=== PATIENT | female | born 1945 | race African-American/Black ===

== ENCOUNTER 2018-01-17 18:53 | Observation (INO) | payer BC, MEDICARE ==
[2018-01-17 19:05] LABS: POC GLUCOSE 109 mg/dL (70-99)
[2018-01-17 19:14] LABS: ADD MAN DIFF? NO
[2018-01-17 19:16] LABS: BASO % 1 % (0-3); EOS # 0.1 x10^3/uL (0.0-0.7); EOS % 2 % (0-3); HEMATOCRIT 38.3 % (36.0-47.0); HEMOGLOBIN 12.6 g/dL (12.0-15.5); LYMPH # 2.6 x10^3/uL (1.0-4.8); LYMPH % 38 % (24-48); MEAN CORPUSCULAR HEMOGLOBIN 28 pg (25-35); MEAN CORPUSCULAR HGB CONC 33 g/dL (31-37); MEAN CORPUSCULAR VOLUME 85 fL (79-100); MONO # 0.7 x10^3/uL (0.0-1.1); MONO % 11 % (0-9); NEUT # 3.4 x10^3uL (1.8-7.7); NEUT % 49 % (31-73); PLATELET COUNT 312 x10^3/uL (140-400); RED CELL DISTRIBUTION WIDTH 14.6 % (11.5-14.5); WHITE BLOOD COUNT 6.8 x10^3/uL (4.0-11.0)
[2018-01-17 19:25] LABS: ANION GAP 7 (6-14); BLOOD UREA NITROGEN 18 mg/dL (7-20); CALCIUM 8.3 mg/dL (8.5-10.1); CARBON DIOXIDE 26 mmol/L (21-32); CHLORIDE 107 mmol/L (98-107); CREATININE 0.9 mg/dL (0.6-1.0); GFR 74.1; GLUCOSE 96 mg/dL (70-99); POTASSIUM 3.6 mmol/L (3.5-5.1); SODIUM 140 mmol/L (136-145)
[2018-01-17 19:31] LABS: ETHANOL < 10 mg/dL (0-10)
[2018-01-17 19:34] LABS: TROPONINI < 0.017 ng/mL (0.000-0.055)
[2018-01-17 19:38] LABS: NT-PRO BNP 85 pg/mL (0-124)
[2018-01-17] MEDS: IV NORMAL SALINE 500ML BAG 500 ML IV (20:15)
[2018-01-17] MEDS ORDERED: ONDANSETRON PF 4 MG/2 ML VIAL. IV (21:30)
[2018-01-17 21:53] LABS: BILIRUBIN,URINE NEGATIVE (NEG); CLARITY,URINE CLEAR; COLOR,URINE YELLOW; GLUCOSE,URINE NEGATIVE (NEG); NITRITE,URINE NEGATIVE (NEG); PH,URINE 6.5; PROTEIN,URINE NEGATIVE (NEG-TRACE)
[2018-01-17 22:01] LABS: BACTERIA,URINE 0 /HPF (0-FEW); HYALINE CASTS, URINE FEW /HPF; RBC,URINE 0 /HPF (0-2); SQUAMOUS EPITHELIAL CELL,UR FEW /LPF; WBC,URINE 0 /HPF (0-4)
[2018-01-17] MEDS: IV NORMAL SALINE 1000ML BAG 1,000 ML IV (23:47)
[2018-01-18 01:29] LABS: TROPONINI < 0.017 ng/mL (0.000-0.055)
[2018-01-18 04:37] LABS: ADD MAN DIFF? NO
[2018-01-18 04:46] LABS: BASO # 0.1 x10^3/uL (0.0-0.2); BASO % 1 % (0-3); EOS # 0.1 x10^3/uL (0.0-0.7); EOS % 1 % (0-3); HEMATOCRIT 38.2 % (36.0-47.0); HEMOGLOBIN 12.6 g/dL (12.0-15.5); LYMPH # 3.1 x10^3/uL (1.0-4.8); LYMPH % 34 % (24-48); MEAN CORPUSCULAR HEMOGLOBIN 28 pg (25-35); MEAN CORPUSCULAR HGB CONC 33 g/dL (31-37); MEAN CORPUSCULAR VOLUME 86 fL (79-100); MONO # 0.7 x10^3/uL (0.0-1.1); MONO % 8 % (0-9); NEUT # 5.1 x10^3uL (1.8-7.7); NEUT % 56 % (31-73); PLATELET COUNT 307 x10^3/uL (140-400); RED BLOOD COUNT 4.45 x10^6/uL (3.50-5.40); RED CELL DISTRIBUTION WIDTH 14.6 % (11.5-14.5); WHITE BLOOD COUNT 9.1 x10^3/uL (4.0-11.0)
[2018-01-18 05:32] LABS: ANION GAP 6 (6-14); BLOOD UREA NITROGEN 14 mg/dL (7-20); CALCIUM 8.4 mg/dL (8.5-10.1); CARBON DIOXIDE 27 mmol/L (21-32); CHLORIDE 110 mmol/L (98-107); CREATININE 0.7 mg/dL (0.6-1.0); GLUCOSE 82 mg/dL (70-99); POTASSIUM 3.9 mmol/L (3.5-5.1); SODIUM 143 mmol/L (136-145)
[2018-01-18 05:56] LABS: TROPONINI < 0.017 ng/mL (0.000-0.055)
[2018-01-18] MEDS: IV NORMAL SALINE 1000ML BAG 1,000 ML IV (12:07)
[2018-01-18] MEDS: ASPIRIN ENTERIC COATED 81 MG TABLET.DR. PO (16:21)
[2018-01-18] MEDS: CHOLECALCIFEROL (VITAMIN D3) 1,000 UNIT TABLET PO (16:23)
[2018-01-18] MEDS: SIMVASTATIN 40 MG TABLET. PO (20:06)
[2018-01-19] MEDS: ASPIRIN ENTERIC COATED 81 MG TABLET.DR. PO (09:04)
[2018-01-19] MEDS: CHOLECALCIFEROL (VITAMIN D3) 1,000 UNIT TABLET PO (09:04)
== END 2018-01-19 13:30 | disposition home or self-care (01) ==
LOC: ER 18:53 → 5 SOUTH 20:30
PROVIDERS: Hospitalist
DX: R55 Syncope and collapse (principal); I10 Essential (primary) hypertension; R32 Unspecified urinary incontinence; Z86.73 Personal history of transient ischemic attack (TIA), and cerebral infarction without residual deficits; Z90.710 Acquired absence of both cervix and uterus
CPT/HCPCS: 36415; 70450; 80048; 81001; 82962; 83880; 84484; 85025; 93005; 93306; 96360; 96361; 97161-GP; 99285-25; G0378; G0379; G0480; G8978-CH-GP; G8979-CH-GP; G8980-CH-GP; J7030; J7040

== ENCOUNTER → 2018-12-28 | Outpatient (CLI) | payer BC ==
[2018-01-19 11:00] VITALS: BP 137/67
[~2018-12-28] MED LIST: AMLO10TA8 PO; ASPI-171 PO; CHOL10003 PO; LISI10TA2 PO; SIMV40TA3 PO
--- NOTE | 2018-12-28 18:23 | KCIC ---
MRI of the brain without contrast 12/28/2018 Clinical History: Memory loss. Technique: Unenhanced T1-weighted sagittal and axial, T2-weighted axial and coronal and FLAIR, gradient echo and diffusion-weighted axial images of the brain were obtained. Findings: Comparison study is dated 11/01/2013. There is generalized parenchymal atrophy. Patchy, confluent and multiple focal areas of increased signal intensity are seen within the periventricular and subcortical white matter of both cerebral hemispheres along with the dari on the FLAIR and T2-weighted images consistent with areas of extensive small vessel ischemic disease. These have not significantly changed. Old areas of infarction are seen involving the right cerebellar hemisphere. These measure 2 mm to 2 cm in size. Old areas of infarction are seen involving the left and right thalamus and the left basal ganglia region. No acute parenchymal abnormality is seen. No extra-axial fluid collection is seen. There is no MRI evidence of acute ischemia/infarction. Mild mucosal thickening is seen scattered throughout the paranasal sinuses. A minimal bilateral mastoid effusions. Normal flow voids are seen within the major vascular structures surrounding the brain parenchyma. Impression: No acute parenchymal abnormality is seen. Electronically signed by: Albert Mckeon MD (12/28/2018 6:21 PM) [facility]-[email or web address]
== END | disposition home or self-care (01) ==
LOC: KCIC MRI 14:26
PROVIDERS: ATTEND Internal Medicine
DX: G31.89 Other specified degenerative diseases of nervous system (principal); H74.8X3 Other specified disorders of middle ear and mastoid, bilateral; J34.89 Other specified disorders of nose and nasal sinuses
CPT/HCPCS: 70551

== ENCOUNTER 2019-09-24 15:38 | Observation (INO) | payer BC ==
[~2019-09-24] VITALS: Ht 160 cm; Wt 63.0 kg
[~2019-09-24 15:38] MED LIST changes: +SIMV40TA18 PO; -SIMV40TA3 PO
[2019-09-24] MEDS ORDERED: 0.9 % SODIUM CHLORIDE 10 ML DISP.SYRIN. IV PRN (15:45)
--- NOTE | 2019-09-24 15:52 | PHYS DOC ---
Past Medical History Past Medical History: CVA, DVT, Hypertension, TIA Past Surgical History: Cholecystectomy, Hysterectomy Smoking Status: Current Every Day Smoker Alcohol Use: Rarely Drug Use: Marijuana Adult General HPI HPI Patient is a 74 year old female who presents with evaluation of headache and elevated blood pressure. EMS was called to the patient's home and she was having a moderate headache and initial blood pressure was 200/100s. Patient has a known history of hypertension but has some underlying dementia and may not be compliant with medications. Patient currently lives at home with her son. He is in route so we can discuss the case further. Patient has history of recent TIA or CVA in the past 1 to 2 months. Blood pressure improved to 176/80s in the ambulance. Patient is pleasant, awake and alert. There is no focal deficits or lateralizing signs. Patient complaining of mild to early moderate headache worse on left side. No chest pain, no shortness of air, no nausea and vomiting. No syncope reported from report given from EMS Review of Systems Review of Systems Constitutional: Denies fever or chills [] Eyes: Denies change in visual acuity, redness, or eye pain [] HENT: Denies nasal congestion or sore throat [] Respiratory: Denies cough or shortness of breath [] Cardiovascular: No additional information not addressed in HPI [] GI: Denies abdominal pain, nausea, vomiting, bloody stools or diarrhea [] : Denies dysuria or hematuria [] Musculoskeletal: Denies back pain or joint pain [] Integument: Denies rash or skin lesions [] Neurologic: c/o headache, no focal weakness or sensory changes [] Endocrine: Denies polyuria or polydipsia [] All other systems were reviewed and found to be within normal limits, except as documented in this note. Current Medications Current Medications Current Medications Medications (Trade) Dose Ordered Sig/Luis Angel Start Time Stop Time Status Last Admin Dose Admin Sodium Chloride (Normal Saline Flush) 10 ml QSHIFT PRN 09/24/19 15:45 Allergies Allergies Allergies Coded Allergies Type Severity Reaction Last Updated Verified Penicillins Allergy Intermediate 11/01/13 Yes codeine Allergy Intermediate 11/01/13 Yes Physical Exam Physical Exam Constitutional: Well developed, well nourished, mild distress. [] HENT: Normocephalic, atraumatic, bilateral external ears normal, oropharynx moist, no oral exudates, nose normal. [] Eyes: PERRL, EOMI, conjunctiva normal, no discharge. [] Neck: Normal range of motion, no tenderness, supple, no stridor. [] Cardiovascular:Heart rate regular rhythm, no murmur [] Lungs & Thorax: Bilateral breath sounds clear to auscultation [] Abdomen: Bowel sounds normal, soft, no tenderness, no masses, no pulsatile masses. [] Skin: Warm, dry, no erythema, no rash. [] Back: No tenderness, no CVA tenderness. [] Extremities: No tenderness, no cyanosis, no clubbing, ROM intact, no edema. [] Neurologic: Alert and oriented to person, normal motor function, normal sensory function, no focal deficits noted. [] Psychologic: abnormal judgement, flatted affect, mood normal. [] Current Patient Data Vital Signs Vital Signs Date Time Temp Pulse Resp B/P (MAP) Pulse Ox O2 Delivery O2 Flow Rate FiO2 09/24/19 15:38 98.9 60 16 160/80 (106) 91 Room Air 98.9 Lab Values Laboratory Tests Test 09/24/19 16:25 White Blood Count 5.6 x10^3/uL (4.0-11.0) Red Blood Count 4.68 x10^6/uL (3.50-5.40) Hemoglobin 13.4 g/dL (12.0-15.5) Hematocrit 40.1 % (36.0-47.0) Mean Corpuscular Volume 86 fL (79-100) Mean Corpuscular Hemoglobin 29 pg (25-35) Mean Corpuscular Hemoglobin Concent 34 g/dL (31-37) Red Cell Distribution Width 15.2 % (11.5-14.5) H Platelet Count 311 x10^3/uL (140-400) Neutrophils (%) (Auto) 60 % (31-73) Lymphocytes (%) (Auto) 26 % (24-48) Monocytes (%) (Auto) 12 % (0-9) H Eosinophils (%) (Auto) 2 % (0-3) Basophils (%) (Auto) 1 % (0-3) Neutrophils # (Auto) 3.4 x10^3/uL (1.8-7.7) Lymphocytes # (Auto) 1.4 x10^3/uL (1.0-4.8) Monocytes # (Auto) 0.7 x10^3/uL (0.0-1.1) Eosinophils # (Auto) 0.1 x10^3/uL (0.0-0.7) Basophils # (Auto) 0.0 x10^3/uL (0.0-0.2) Sodium Level 143 mmol/L (136-145) Potassium Level 3.8 mmol/L (3.5-5.1) Chloride Level 108 mmol/L (98-107) H Carbon Dioxide Level 26 mmol/L (21-32) Anion Gap 9 (6-14) Blood Urea Nitrogen 15 mg/dL (7-20) Creatinine 1.1 mg/dL (0.6-1.0) H Estimated GFR (Cockcroft-Gault) 58.4 BUN/Creatinine Ratio 14 (6-20) Glucose Level 91 mg/dL (70-99) Calcium Level 8.9 mg/dL (8.5-10.1) Total Bilirubin 0.4 mg/dL (0.2-1.0) Aspartate Amino Transferase (AST) 17 U/L (15-37) Alanine Aminotransferase (ALT) 13 U/L (14-59) L Alkaline Phosphatase 86 U/L (46-116) Troponin I Quantitative < 0.017 ng/mL (0.000-0.055) Total Protein 7.4 g/dL (6.4-8.2) Albumin 2.8 g/dL (3.4-5.0) L Albumin/Globulin Ratio 0.6 (1.0-1.7) L Laboratory Tests 09/24/19 16:25 Laboratory Tests 09/24/19 16:25 EKG EKG [] Interpretation Time: Normal sinus rhythm, rate 62, essentially unremarkable EKG, read shortly after patient's arrival Radiology/Procedures Radiology/Procedures PATIENT: LUL BAEZ RACCOUNT: [id number] : 1945 LOCATION: ER AGE: 74 SEX: F EXAM STATUS: REG ER ORD. PHYSICIAN: JEFF SEAMAN DO REASON: short of air PROCEDURE: CHEST AP ONLY CHEST AP ONLY Clinical Indication: Shortness of air Comparison: AP chest October 31, 2013. Findings: Atherosclerotic and tortuous thoracic aorta. The cardiac size is normal. Linear opacities in the left lung base may be atelectasis or scarring. Tiny calcified granulomas are noted bilaterally. There is no pneumothorax. No pleural effusion is appreciated. No acute bone abnormality. IMPRESSION: Mild linear opacities in the left lung base may be atelectasis or scarring. Electronically signed by: Pollo Correa MD (09/24/2019 4:10 PM) [id number] DICTATED and SIGNED BY: POLLO CORREA MD DATE: 09/24/190 PATIENT: LUL BAEZ RACCOUNT: [id number] : 1945 LOCATION: ER AGE: 74 SEX: F EXAM STATUS: REG ER ORD. PHYSICIAN: JEFF SEAMAN DO REASON: headache, HTN crisis, hx TIA/CVA PROCEDURE: CT HEAD WO CONTRAST CT HEAD WO CONTRAST Indication: Headache, hypertensive crisis. Exposure: One or more of the following individualized dose reduction techniques were utilized for this examination: 1. Automated exposure control 2. Adjustment of the mA and/or kV according to patient size 3. Use of iterative reconstruction technique. Technique: Standard imaging without intravenous contrast. Comparison: 01/17/2018. FINDINGS: No evidence of acute intracranial hemorrhage, mass effect, midline shift or abnormal extra-axial fluid collection. Low-density in the white matter bilaterally, a nonspecific finding, but which is commonly due to chronic small vessel ischemic disease in a patient of this age. More focal low-density focus within the left basal ganglia/internal capsule is again identified, likely chronic appearing infarct. There is another well-defined low-attenuation focus within the right basal ganglia/internal capsule, not seen previously. This is also compatible with small lacunar infarction, probably not acute but new since that exam. Another low-density region in the left periventricular white matter is stable, probably another lunar consider infarct versus cyst. Generalized atrophy. The partially visualized orbits are unremarkable. No evidence of significant scalp swelling. The visualized sinuses are clear. No evidence of acute skull abnormality. IMPRESSION: 1. No evidence of acute intracranial hemorrhage. 2. Small areas of white matter hypodensity likely due to old lacunar infarcts and chronic small vessel ischemic disease. One of these on the right is new since the previous exam, but still has a chronic appearance. Note that CT can be insensitive for detection of acute infarction, and recommend MR brain if that is of concern clinically. Electronically signed by: Eagle Kearney MD (09/24/2019 4:13 PM) [id number] DICTATED and SIGNED BY: EAGLE KEARNEY MD DATE: 09/24/19 1613 Course & Med Decision Making Course & Med Decision Making Pertinent Labs and Imaging studies reviewed. (See chart for details) 1700 patient accepted for admission by Dr. Valenzuela. Patient admitted to a telemetry bed for overnight observation. Differential diagnosis included CVA, uncontrolled hypertension, brain bleed, hypoglycemia, electrolyte disturbance, cardiac issue. Patient is lucid, awake and appropriate at this time. NIH stroke scale is 1 because patient did not know the month. However she has underlying dementia and that may be her baseline status. Patient has no obvious new focal deficits or lateralizing signs. Patient did not require IV medication or drip to control her hypertension Dragon Disclaimer Dragon Disclaimer This electronic medical record was generated, in whole or in part, using a voice recognition dictation system. Departure Departure Impression: Primary Impression: Hypertensive urgency Additional Impression: Cerebral infarction Disposition: ADMITTED INPATIENT Admitting Physician: SRI (Dr. Valenzuela) Condition: STABLE Referrals: NEAL DUDLEY MD (PCP) NIHSS Stroke Scale NIH Stroke Scale: NIH Stroke Scale Response (Comments) Value Level of Consciousness: 0 Alert/Responsive 0 LOC Questions: 1 Answers one correctly 1 LOC Commands: 0 Performs both tasks 0 Best Gaze: 0 Normal 0 Facial Palsy: 0 Normal, symmetrical 0 Motor - Left Arm 0 No drift 0 Motor - Right Arm 0 No drift 0 Motor - Left Leg 0 No drift 0 Motor: Right Leg 0 No drift 0 Limb Ataxia: 0 Absent 0 Sensory: 0 No loss 0 Best Language: 0 Normal 0 Dysathria: 0 Normal 0 Extinction and Inattention: 0 Normal 0 Total 1 Problem Qualifiers JEFF SEAMAN DO Sep 24, 2019 15:52
--- NOTE | 2019-09-24 16:13 | RAD ---
CHEST AP ONLY Clinical Indication: Shortness of air Comparison: AP chest October 31, 2013. Findings: Atherosclerotic and tortuous thoracic aorta. The cardiac size is normal. Linear opacities in the left lung base may be atelectasis or scarring. Tiny calcified granulomas are noted bilaterally. There is no pneumothorax. No pleural effusion is appreciated. No acute bone abnormality. IMPRESSION: Mild linear opacities in the left lung base may be atelectasis or scarring. Electronically signed by: Pollo Correa MD (09/24/2019 4:10 PM) [id number]
--- NOTE | 2019-09-24 16:16 | RAD ---
CT HEAD WO CONTRAST Indication: Headache, hypertensive crisis. Exposure: One or more of the following individualized dose reduction techniques were utilized for this examination: 1. Automated exposure control 2. Adjustment of the mA and/or kV according to patient size 3. Use of iterative reconstruction technique. Technique: Standard imaging without intravenous contrast. Comparison: 01/17/2018. FINDINGS: No evidence of acute intracranial hemorrhage, mass effect, midline shift or abnormal extra-axial fluid collection. Low-density in the white matter bilaterally, a nonspecific finding, but which is commonly due to chronic small vessel ischemic disease in a patient of this age. More focal low-density focus within the left basal ganglia/internal capsule is again identified, likely chronic appearing infarct. There is another well-defined low-attenuation focus within the right basal ganglia/internal capsule, not seen previously. This is also compatible with small lacunar infarction, probably not acute but new since that exam. Another low-density region in the left periventricular white matter is stable, probably another lunar consider infarct versus cyst. Generalized atrophy. The partially visualized orbits are unremarkable. No evidence of significant scalp swelling. The visualized sinuses are clear. No evidence of acute skull abnormality. IMPRESSION: 1. No evidence of acute intracranial hemorrhage. 2. Small areas of white matter hypodensity likely due to old lacunar infarcts and chronic small vessel ischemic disease. One of these on the right is new since the previous exam, but still has a chronic appearance. Note that CT can be insensitive for detection of acute infarction, and recommend MR brain if that is of concern clinically. Electronically signed by: Eagle Kearney MD (09/24/2019 4:13 PM) [id number]
--- NOTE | 2019-09-24 16:18 | EKG ---
[facility] [address] [place] [address] Test Date: 2019-09-24 Test Time: 15:48:13 Pat Name: LUL BAEZ Department: Room: Gender: F Helper Electrical: : 1945 Requested By: JEFF SEAMAN Order Number: [id number] Reading MD: Measurements Intervals [place] Rate: 62 P: 42 LA: 152 QRS: 4 QRSD: 66 T: 38 QT: 366 QTc: 373 Interpretive Statements SINUS RHYTHM NORMAL ECG No previous ECG available for comparison
[2019-09-24 16:36] LABS: BASO % 1 % (0-3); EOS # 0.1 x10^3/uL (0.0-0.7); EOS % 2 % (0-3); HEMATOCRIT 40.1 % (36.0-47.0); HEMOGLOBIN 13.4 g/dL (12.0-15.5); LYMPH # 1.4 x10^3/uL (1.0-4.8); LYMPH % 26 % (24-48); MEAN CORPUSCULAR HEMOGLOBIN 29 pg (25-35); MEAN CORPUSCULAR HGB CONC 34 g/dL (31-37); MEAN CORPUSCULAR VOLUME 86 fL (79-100); MONO # 0.7 x10^3/uL (0.0-1.1); MONO % 12 % (0-9); NEUT # 3.4 x10^3/uL (1.8-7.7); NEUT % 60 % (31-73); PLATELET COUNT 311 x10^3/uL (140-400); RED BLOOD COUNT 4.68 x10^6/uL (3.50-5.40); RED CELL DISTRIBUTION WIDTH 15.2 % (11.5-14.5); WHITE BLOOD COUNT 5.6 x10^3/uL (4.0-11.0)
[2019-09-24 16:44] LABS: CALCIUM 8.9 mg/dL (8.5-10.1); CREATININE 1.1 mg/dL (0.6-1.0); GFR 58.4; POTASSIUM 3.8 mmol/L (3.5-5.1)
[2019-09-24 16:50] LABS: ALBUMIN 2.8 g/dL (3.4-5.0); ALBUMIN/GLOBULIN RATIO 0.6 (1.0-1.7); TOTAL BILIRUBIN 0.4 mg/dL (0.2-1.0); TOTAL PROTEIN 7.4 g/dL (6.4-8.2)
[2019-09-24] MEDS ORDERED: ONDANSETRON PF 4 MG/2 ML VIAL. IV PRN (18:15)
[2019-09-24 19:55] VITALS: BP 156/77
[2019-09-24 23:00] VITALS: BP 150/63
[2019-09-25 03:38] VITALS: BP 150/71
[2019-09-25 07:48] VITALS: BP 144/69
[2019-09-25] MEDS ORDERED: amLODIPine BESYLATE 10 MG TABLET PO SCH (10:00)
[2019-09-25] MEDS ORDERED: ASPIRIN ENTERIC COATED 81 MG TABLET.DR. PO SCH (10:00)
[2019-09-25] MEDS ORDERED: CHOLECALCIFEROL (VITAMIN D3) 1,000 UNIT TABLET PO SCH (10:00)
--- NOTE | 2019-09-25 11:03 | NUR ---
SS following for discharge planning. SS reviewed pt chart. Pt is from home and is currently on room air. SS will continue to follow for discharge planning.
[2019-09-25 11:37] VITALS: BP 146/64
--- NOTE | 2019-09-25 12:45 | PDOC1 ---
History and Physical Date of Admission Date of Admission 09/25/2019 Identification/Chief Complaint Chief Complaint Hypertension History of Present Illness History of Present Illness Patient is a 74-year-old female with past medical history of CVA DVT hypertension who was in her usual state of health until the evening of her admission. Patient has been having some mild headaches over the course of the week. Nevertheless today she presented worsening discomfort EMS was called to discuss today reassured blood pressure readings in the 200s. The patient denies neurological deficits no strokelike symptoms she denies chest pain no palpitations no sensation of impending doom. No disorientation has been reported, the patient is sitting in bed in no acute distress at the time of my visit She denies chest discomfort no acute events reported over 9 her blood pressure seems to be quite better compared to admission we were asked to admit the patient for observation and for blood pressure control. This has been accomplished at the present time and the patient is voicing her wishes to be dismissed home. She is currently a smoker and 10 minutes of counseling took place with the patient and the importance and benefits on her health of quitting smoking. She lives by herself but seems to have family members close by. When asked about her medications and compliance she has a pill organizer and I have encouraged her to follow-up with her primary care physician within 1 week in order to ensure that she has had resolution of her uncontrolled hypertension. Low-salt diet was also discussed during my encounter. We will observe for 1 more hour and probably dismissed patient to early afternoon. Past Medical History Cardiovascular: No pertinent hx Family History Family History Reviewed and found negative noncontributory to the present Current Problem List Problem List Problems Medical Problems: (1) Cerebral infarction Status: Acute (2) Hypertensive urgency Status: Acute Current Medications Current Medications Current Medications Medications (Trade) Dose Ordered Sig/Luis Angel Start Time Stop Time Status Last Admin Dose Admin Amlodipine Besylate (Norvasc) 10 mg DAILY 09/25/19 10:00 09/25/19 09:52 10 MG Aspirin (Ecotrin) 81 mg DAILY 09/25/19 10:00 09/25/19 09:51 81 MG Atorvastatin Calcium (Lipitor) 20 mg QHS 09/25/19 21:00 Ondansetron HCl (Zofran) 4 mg PRN Q8HRS PRN 09/24/19 18:15 09/25/19 18:14 Sodium Chloride (Normal Saline Flush) 10 ml QSHIFT PRN 09/24/19 15:45 Vitamin D (Vitamin D3) 2,000 unit DAILY 09/25/19 10:00 09/25/19 09:51 2,000 UNIT Allergies Allergies Allergies Coded Allergies Type Severity Reaction Last Updated Verified Penicillins Allergy Intermediate 11/01/13 Yes codeine Allergy Intermediate 11/01/13 Yes ROS Review of System CONSTITUTIONAL: No fever or chills EYES: No recent changes SKIN: No rash or itching CARDIOVASCULAR: No chest pain, syncope, palpitations, or edema RESPIRATORY: No SOB or cough GASTROINTESTINAL: No nausea, vomiting or abdominal pain NEUROLOGICAL: No headaches or weakness ENDOCRINE: No cold or heat intolerance GENITOURINARY: No urgency or frequency of urination MUSCULOSKELETAL: No back pain or joint pain LYMPHATICS: No enlarged lymph nodes PSYCHIATRIC: No anxiety or depression Physical Exam Physical Exam GEN.: No apparent distress. Alert and oriented. HEENT: Head is normocephalic, atraumatic NECK: Supple. LUNGS: Clear to auscultation. HEART: RRR, S1, S2 present. Peripheral pulses intact ABDOMEN: Soft, nontender. Positive bowel sounds. EXTREMITIES: Without any cyanosis. NEUROLOGIC: Normal speech, normal tone PSYCHIATRIC: Normal affect, normal mood. SKIN: No ulcerations Vitals Vitals Vital Signs Date Time Temp Pulse Resp B/P (MAP) Pulse Ox O2 Delivery O2 Flow Rate FiO2 09/25/19 11:37 98.6 63 18 146/64 (91) 95 Room Air 98.6 Labs Labs Laboratory Tests Test 09/24/19 16:25 White Blood Count 5.6 x10^3/uL (4.0-11.0) Red Blood Count 4.68 x10^6/uL (3.50-5.40) Hemoglobin 13.4 g/dL (12.0-15.5) Hematocrit 40.1 % (36.0-47.0) Mean Corpuscular Volume 86 fL (79-100) Mean Corpuscular Hemoglobin 29 pg (25-35) Mean Corpuscular Hemoglobin Concent 34 g/dL (31-37) Red Cell Distribution Width 15.2 % (11.5-14.5) Platelet Count 311 x10^3/uL (140-400) Neutrophils (%) (Auto) 60 % (31-73) Lymphocytes (%) (Auto) 26 % (24-48) Monocytes (%) (Auto) 12 % (0-9) Eosinophils (%) (Auto) 2 % (0-3) Basophils (%) (Auto) 1 % (0-3) Neutrophils # (Auto) 3.4 x10^3/uL (1.8-7.7) Lymphocytes # (Auto) 1.4 x10^3/uL (1.0-4.8) Monocytes # (Auto) 0.7 x10^3/uL (0.0-1.1) Eosinophils # (Auto) 0.1 x10^3/uL (0.0-0.7) Basophils # (Auto) 0.0 x10^3/uL (0.0-0.2) Sodium Level 143 mmol/L (136-145) Potassium Level 3.8 mmol/L (3.5-5.1) Chloride Level 108 mmol/L (98-107) Carbon Dioxide Level 26 mmol/L (21-32) Anion Gap 9 (6-14) Blood Urea Nitrogen 15 mg/dL (7-20) Creatinine 1.1 mg/dL (0.6-1.0) Estimated GFR (Cockcroft-Gault) 58.4 BUN/Creatinine Ratio 14 (6-20) Glucose Level 91 mg/dL (70-99) Calcium Level 8.9 mg/dL (8.5-10.1) Total Bilirubin 0.4 mg/dL (0.2-1.0) Aspartate Amino Transf (AST/SGOT) 17 U/L (15-37) Alanine Aminotransferase (ALT/SGPT) 13 U/L (14-59) Alkaline Phosphatase 86 U/L (46-116) Troponin I Quantitative < 0.017 ng/mL (0.000-0.055) Total Protein 7.4 g/dL (6.4-8.2) Albumin 2.8 g/dL (3.4-5.0) Albumin/Globulin Ratio 0.6 (1.0-1.7) Laboratory Tests Test 09/24/19 16:25 White Blood Count 5.6 x10^3/uL (4.0-11.0) Red Blood Count 4.68 x10^6/uL (3.50-5.40) Hemoglobin 13.4 g/dL (12.0-15.5) Hematocrit 40.1 % (36.0-47.0) Mean Corpuscular Volume 86 fL (79-100) Mean Corpuscular Hemoglobin 29 pg (25-35) Mean Corpuscular Hemoglobin Concent 34 g/dL (31-37) Red Cell Distribution Width 15.2 % (11.5-14.5) Platelet Count 311 x10^3/uL (140-400) Neutrophils (%) (Auto) 60 % (31-73) Lymphocytes (%) (Auto) 26 % (24-48) Monocytes (%) (Auto) 12 % (0-9) Eosinophils (%) (Auto) 2 % (0-3) Basophils (%) (Auto) 1 % (0-3) Neutrophils # (Auto) 3.4 x10^3/uL (1.8-7.7) Lymphocytes # (Auto) 1.4 x10^3/uL (1.0-4.8) Monocytes # (Auto) 0.7 x10^3/uL (0.0-1.1) Eosinophils # (Auto) 0.1 x10^3/uL (0.0-0.7) Basophils # (Auto) 0.0 x10^3/uL (0.0-0.2) Sodium Level 143 mmol/L (136-145) Potassium Level 3.8 mmol/L (3.5-5.1) Chloride Level 108 mmol/L (98-107) Carbon Dioxide Level 26 mmol/L (21-32) Anion Gap 9 (6-14) Blood Urea Nitrogen 15 mg/dL (7-20) Creatinine 1.1 mg/dL (0.6-1.0) Estimated GFR (Cockcroft-Gault) 58.4 BUN/Creatinine Ratio 14 (6-20) Glucose Level 91 mg/dL (70-99) Calcium Level 8.9 mg/dL (8.5-10.1) Total Bilirubin 0.4 mg/dL (0.2-1.0) Aspartate Amino Transf (AST/SGOT) 17 U/L (15-37) Alanine Aminotransferase (ALT/SGPT) 13 U/L (14-59) Alkaline Phosphatase 86 U/L (46-116) Troponin I Quantitative < 0.017 ng/mL (0.000-0.055) Total Protein 7.4 g/dL (6.4-8.2) Albumin 2.8 g/dL (3.4-5.0) Albumin/Globulin Ratio 0.6 (1.0-1.7) VTE Prophylaxis Ordered VTE Prophylaxis Devices: No VTE Pharmacological Prophylaxi: Yes Assessment/Plan Assessment/Plan Hypertensive urgency Medication nonadherence probably History of CVA and TIA with no acute events Chronic kidney disease stage II/IIIa Moderate malnutrition Plan Observe 1 hour BP continues to be well she may be dismissed Further recommendations based on the clinical course No changes to her medications DVT prophylaxis with SCD and JOSELIN Valdez MD Sep 25, 2019 12:45
[2019-09-25 12:46] LABS: BILIRUBIN,URINE NEGATIVE (NEG); CLARITY,URINE CLEAR; COLOR,URINE YELLOW; NITRITE,URINE NEGATIVE (NEG); PROTEIN,URINE NEGATIVE (NEG-TRACE)
--- NOTE | 2019-09-25 12:46 | PDOC3 ---
Discharge Summary Visit Information Date of Admission: Sep 25, 2019 Date of Discharge: Sep 25, 2019 Admitting Diagnosis Comment: Hypertensive urgency Final Diagnosis Problems Medical Problems: (1) Hypertensive urgency Status: Acute Brief Hospital Course Allergies Allergies Coded Allergies Type Severity Reaction Last Updated Verified Penicillins Allergy Intermediate 11/01/13 Yes codeine Allergy Intermediate 11/01/13 Yes Vital Signs Vital Signs Date Time Temp Pulse Resp B/P (MAP) Pulse Ox O2 Delivery O2 Flow Rate FiO2 09/25/19 11:37 98.6 63 18 146/64 (91) 95 Room Air 98.6 Lab Results Laboratory Tests Test 09/24/19 16:25 White Blood Count 5.6 x10^3/uL (4.0-11.0) Red Blood Count 4.68 x10^6/uL (3.50-5.40) Hemoglobin 13.4 g/dL (12.0-15.5) Hematocrit 40.1 % (36.0-47.0) Mean Corpuscular Volume 86 fL (79-100) Mean Corpuscular Hemoglobin 29 pg (25-35) Mean Corpuscular Hemoglobin Concent 34 g/dL (31-37) Red Cell Distribution Width 15.2 % (11.5-14.5) Platelet Count 311 x10^3/uL (140-400) Neutrophils (%) (Auto) 60 % (31-73) Lymphocytes (%) (Auto) 26 % (24-48) Monocytes (%) (Auto) 12 % (0-9) Eosinophils (%) (Auto) 2 % (0-3) Basophils (%) (Auto) 1 % (0-3) Neutrophils # (Auto) 3.4 x10^3/uL (1.8-7.7) Lymphocytes # (Auto) 1.4 x10^3/uL (1.0-4.8) Monocytes # (Auto) 0.7 x10^3/uL (0.0-1.1) Eosinophils # (Auto) 0.1 x10^3/uL (0.0-0.7) Basophils # (Auto) 0.0 x10^3/uL (0.0-0.2) Sodium Level 143 mmol/L (136-145) Potassium Level 3.8 mmol/L (3.5-5.1) Chloride Level 108 mmol/L (98-107) Carbon Dioxide Level 26 mmol/L (21-32) Anion Gap 9 (6-14) Blood Urea Nitrogen 15 mg/dL (7-20) Creatinine 1.1 mg/dL (0.6-1.0) Estimated GFR (Cockcroft-Gault) 58.4 BUN/Creatinine Ratio 14 (6-20) Glucose Level 91 mg/dL (70-99) Calcium Level 8.9 mg/dL (8.5-10.1) Total Bilirubin 0.4 mg/dL (0.2-1.0) Aspartate Amino Transf (AST/SGOT) 17 U/L (15-37) Alanine Aminotransferase (ALT/SGPT) 13 U/L (14-59) Alkaline Phosphatase 86 U/L (46-116) Troponin I Quantitative < 0.017 ng/mL (0.000-0.055) Total Protein 7.4 g/dL (6.4-8.2) Albumin 2.8 g/dL (3.4-5.0) Albumin/Globulin Ratio 0.6 (1.0-1.7) Laboratory Tests Test 09/24/19 16:25 White Blood Count 5.6 x10^3/uL (4.0-11.0) Red Blood Count 4.68 x10^6/uL (3.50-5.40) Hemoglobin 13.4 g/dL (12.0-15.5) Hematocrit 40.1 % (36.0-47.0) Mean Corpuscular Volume 86 fL (79-100) Mean Corpuscular Hemoglobin 29 pg (25-35) Mean Corpuscular Hemoglobin Concent 34 g/dL (31-37) Red Cell Distribution Width 15.2 % (11.5-14.5) Platelet Count 311 x10^3/uL (140-400) Neutrophils (%) (Auto) 60 % (31-73) Lymphocytes (%) (Auto) 26 % (24-48) Monocytes (%) (Auto) 12 % (0-9) Eosinophils (%) (Auto) 2 % (0-3) Basophils (%) (Auto) 1 % (0-3) Neutrophils # (Auto) 3.4 x10^3/uL (1.8-7.7) Lymphocytes # (Auto) 1.4 x10^3/uL (1.0-4.8) Monocytes # (Auto) 0.7 x10^3/uL (0.0-1.1) Eosinophils # (Auto) 0.1 x10^3/uL (0.0-0.7) Basophils # (Auto) 0.0 x10^3/uL (0.0-0.2) Sodium Level 143 mmol/L (136-145) Potassium Level 3.8 mmol/L (3.5-5.1) Chloride Level 108 mmol/L (98-107) Carbon Dioxide Level 26 mmol/L (21-32) Anion Gap 9 (6-14) Blood Urea Nitrogen 15 mg/dL (7-20) Creatinine 1.1 mg/dL (0.6-1.0) Estimated GFR (Cockcroft-Gault) 58.4 BUN/Creatinine Ratio 14 (6-20) Glucose Level 91 mg/dL (70-99) Calcium Level 8.9 mg/dL (8.5-10.1) Total Bilirubin 0.4 mg/dL (0.2-1.0) Aspartate Amino Transf (AST/SGOT) 17 U/L (15-37) Alanine Aminotransferase (ALT/SGPT) 13 U/L (14-59) Alkaline Phosphatase 86 U/L (46-116) Troponin I Quantitative < 0.017 ng/mL (0.000-0.055) Total Protein 7.4 g/dL (6.4-8.2) Albumin 2.8 g/dL (3.4-5.0) Albumin/Globulin Ratio 0.6 (1.0-1.7) Brief Hospital Course Ms. Fisher is a 74 old female who was admitted to the hospital in order to control her blood pressure which have been given her headaches for the last couple days. No acute events were reported and she was in good spirits to be dismissed home. Tobacco Cessation counseling took place during her brief inpatient stay and I have encouraged to formulate a plan with her primary care physician sooner rather than later. Reassurance was provided signs and symptoms of alarm to prior to dismissal were discussed with the patient no concerns were voiced prior to departure Assessment Assessment Physical exam Unchanged from admission Discharge Information Condition at Discharge: Improved Follow Up: Weeks Disposition/Orders: D/C to Home Scheduled Amlodipine Besylate (Amlodipine Besylate) 10 Mg Tablet, 10 MG PO DAILY, (Reporte d) Entered as Reported by: JAYLYN FENG on 01/17/182312 Last Action: Continued on 09/25/19941 by JOSELIN MONREAL MD Aspirin (Lo-Dose Aspirin EC) 81 Mg Tablet.dr, 81 MG PO DAILY, (Reported) Entered as Reported by: JAYLYN FENG on 01/17/182312 Last Action: Continued on 09/25/19941 by JOSELIN MONREAL MD Cholecalciferol (Vitamin D3) (Vitamin D3) 1,000 Unit Tablet, 2 TAB PO DAILY, #30 Ref 5 (Reported) Entered as Reported by: JAYLYN FENG on 01/17/182312 Last Action: Continued on 09/25/19941 by JOSELIN MONREAL MD Simvastatin (Simvastatin) 40 Mg Tablet, 40 MG PO DAILY, (Reported) Entered as Reported by: JAYLYN FENG on 01/17/182312 Last Action: Continued on 09/25/19941 by MD JOCELIN WILEY HECTOR M MD Sep 25, 2019 12:46
[2019-09-25 13:04] LABS: HYALINE CASTS, URINE FEW /HPF; SQUAMOUS EPITHELIAL CELL,UR MANY /LPF
[2019-09-25 13:06] LABS: BACTERIA,URINE MODERATE /HPF (0-FEW)
--- NOTE | 2019-09-25 14:00 | NUR ---
Pt discharged to home with self care with family via wheelchair. Pt belongings with her at time of discharge. Pt stating that her white tennis shoes are missing. They were left with her at the time of admission. This RN called the ED, they did not have any shoes in the lost and found, house keeping did not find any shoes, and no shoes were found in [facility] lost and found. Nursing Bodywork Therapist notified.
[2019-09-25] MEDS ORDERED: ATORVASTATIN CALCIUM 20 MG TABLET PO SCH (21:00)
== END 2019-09-25 14:19 | disposition home or self-care (01) ==
LOC: ER 15:38 → 6 SOUTH 17:50
PROVIDERS: ADMIT Internal Medicine; ATTEND Internal Medicine
DX: I16.0 Hypertensive urgency (principal); I63.9 Cerebral infarction, unspecified; I12.9 Hypertensive chronic kidney disease with stage 1 through stage 4 chronic kidney disease, or unspecified chronic kidney disease; N18.3 Chronic kidney disease, stage 3 (moderate); E46 Unspecified protein-calorie malnutrition; Z90.710 Acquired absence of both cervix and uterus; Z68.24 Body mass index [BMI] 24.0-24.9, adult; Z86.718 Personal history of other venous thrombosis and embolism; Z90.49 Acquired absence of other specified parts of digestive tract; F17.200 Nicotine dependence, unspecified, uncomplicated
CPT/HCPCS: 36415; 70450; 71045; 80053; 81001; 84484; 85025; 87086; 93005; 99285; G0378; G0379

== ENCOUNTER 2021-05-03 10:45 | Emergency (ER) | payer BC, MEDICARE ==
[~2021-05-03] VITALS: Ht 160 cm; Wt 56.0 kg
[~2021-05-03 10:45] MED LIST changes: +AMLO-187 PO; -AMLO10TA8 PO; +LISI10TA16 PO; -LISI10TA2 PO
--- NOTE | 2021-05-03 11:26 | PHYS DOC ---
Past Medical History Past Medical History: CVA, DVT, Hypertension, TIA Past Surgical History: Cholecystectomy, Hysterectomy Smoking Status: Former Smoker Alcohol Use: Occasionally Drug Use: Marijuana General Adult EDM: Chief Complaint: DIZZY/LIGHT HEADED HPI: HPI: Patient is a 76 year old female who presents from home via EMS for reported history of dizziness. The patient admits that she felt dizzy at home, symptoms resolved rather quickly and remained resolved by the time EMS arrived, continue to be resolved here in the ED. No reported fall or head injury. No reported syncope. She denies chest pain, dyspnea, abdominal pain, nausea vomiting, headache, numbness or tingling, motor weakness, acute vision loss. When the patient reportedly complained of dizziness, the patient's family helped her to a seated position reportedly. She has no complaints at present. Review of Systems: Review of Systems: Constitutional: Denies fever or chills. [] Eyes: Denies vision loss HENT: Denies sore throat Respiratory: Denies cough or shortness of breath. [] Cardiovascular: Denies chest pain or edema. [] GI: Denies abdominal pain, nausea, vomiting, or bowel habit changes. : Denies urinary symptoms. Musculoskeletal: Denies back pain or joint pain. [] Integument: Denies rash. [] Neurologic: Denies headache, focal weakness or sensory changes. Admits to a brief episode of dizziness, which is resolved. No current dizziness. No syncope or head injury. Psychiatric: Denies depression or anxiety. [] Heart Score: C/O Chest Pain: No Risk Factors: Risk Factors: DM, Current or recent (<one month) smoker, HTN, HLP, family history of CAD, obesity. Risk Scores: Score 0 - 3: 2.5% MACE over next 6 weeks - Discharge Home Score 4 - 6: 20.3% MACE over next 6 weeks - Admit for Clinical Observation Score 7 - 10: 72.7% MACE over next 6 weeks - Early Invasive Strategies Allergies: Allergies: Allergies Coded Allergies Type Severity Reaction Last Updated Verified Penicillins Allergy Intermediate 11/01/13 Yes codeine Allergy Intermediate 11/01/13 Yes Physical Exam: PE: Constitutional: Well developed, well nourished, no acute distress, non-toxic appearance. [] HENT: Normocephalic, atraumatic, bilateral external ears normal, oropharynx moist, no oral exudates, nose normal. [] Eyes: PERRLA, EOMI, conjunctiva normal, no discharge. [] Neck: Normal range of motion, no tenderness, supple, no stridor. [] Cardiovascular:Heart rate regular rhythm, no murmur [] Lungs & Thorax: Bilateral breath sounds clear to auscultation [] Abdomen: Bowel sounds normal, soft, no tenderness, no masses, no pulsatile masses. [] Skin: Warm, dry, no erythema, no rash. [] Back: No tenderness, no CVA tenderness. [] Extremities: No tenderness, no cyanosis, no clubbing, ROM intact, no edema. [] Neurologic: Alert and oriented X 3, normal motor function, normal sensory function, no focal deficits noted. [] Psychologic: Affect normal, judgement normal, mood normal. [] Current Patient Data: Vital Signs: Vital Signs Date Time Temp Pulse Resp B/P (MAP) Pulse Ox O2 Delivery O2 Flow Rate FiO2 05/03/21 10:52 98.7 60 16 166/74 (104) 91 Room Air 98.7 EKG: EKG: EKG interpreted at 1114 Rhythm: sinus Rate: 75 bpm [place]: Left No STEMI Radiology/Procedures: Radiology/Procedures: IMAGING REPORT Signed PATIENT: LUL BAEZ RACCOUNT: [id number] : 1945 LOCATION: ER AGE: 76 SEX: F EXAM STATUS: PRE ER ORD. PHYSICIAN: DESIREE JOEL DO REASON: dizziness PROCEDURE: CT HEAD WO CONTRAST CT HEAD WITHOUT CONTRAST 05/03/2021 11:46 AM Indication: Reason: dizziness / Spl. Instructions: / History: Comparison: CT head without contrast September 24, 2019 Findings: No intracranial hemorrhage is seen. No evidence of acute territorial infarct is seen. Note that CT is limited in sensitivity for acute ischemia. Age-related atrophic changes are noted. There is prominent patchy periventricular and deep white matter hypoattenuation which is nonspecific, but most commonly relates to chronic small vessel disease. The appearance is similar to comparison exam. No abnormal extra axial fluid collection is identified. No mass effect or midline shift is seen. No acute osseous abnormalities are seen. Impression: 1. No acute intracranial process identified 2. Age-related atrophy, and prominent changes of chronic small vessel disease as described, similar to comparison exam CT DOSING PQRS STATEMENT: One or more of the following individualized dose reduction techniques were utilized for this examination: 1. Automated exposure control 2. Adjustment of the mA and/or kV according to patient size 3. Use of iterative reconstruction technique Electronically signed by: Cruzito Smart MD (05/03/2021 11:55 AM) [id number] DICTATED and SIGNED BY: CRUZITO SMART MD DATE: 05/03/21 [id number] 0 Course & Med Decision Making: Course & Med Decision Making Pertinent Labs and Imaging studies reviewed. (See chart for details) The patient remains asymptomatic of any dizziness. She is hemodynamically stable. She is awake, alert, and at present she is aggressively eating lunch brought to her by her family. I have discussed all of the findings, differential diagnosis and plan of care with the patient and her family. Ortega lee, no indication for further days of exams, imaging or hospital admission. Her symptoms were brief, resolved quickly, and continued to be resolved here. She has no subjective complaints. I explained that if any symptoms return or worsen, if the patient feels uncomfortable, has any pain, persistent or worsening dizziness, syncope or any concerns at all, the patient should return immediately. Patient is quite anxious to be discharged. The patient's family verbalizes understanding. Paddy Disclaimer: Paddy Disclaimer: This electronic medical record was generated, in whole or in part, using a voice recognition dictation system. Departure Departure Impression: Primary Impression: Dizziness Disposition: 01 HOME / SELF CARE / HOMELESS Condition: GOOD Referrals: NEAL DUDLEY MD (PCP) Patient Instructions: Dizziness, [id number] Additional Instructions: Your emergency department work-up is found to be unremarkable for any acute or life-threatening process. Please continue to eat regularly and stay well- hydrated, drink plenty of water. Take your regularly prescribed medications as directed by your doctor. Return to the ER for any acute injury, fall, trauma, chest pain, shortness of breath, vomiting, dehydration, fever of 100.4 or higher, focal weakness or any other concerns you might have. Contact your primary care physician for follow-up. DESIREE JOEL DO May 03, 2021 11:25
[2021-05-03 11:31] LABS: BASO # 0.1 x10^3/uL (0.0-0.2); BASO % 1 % (0-3); EOS # 0.1 x10^3/uL (0.0-0.7); EOS % 1 % (0-3); HEMATOCRIT 48.3 % (36.0-47.0); HEMOGLOBIN 15.7 g/dL (12.0-15.5); LYMPH # 1.4 x10^3/uL (1.0-4.8); LYMPH % 24 % (24-48); MEAN CORPUSCULAR HEMOGLOBIN 27 pg (25-35); MEAN CORPUSCULAR HGB CONC 32 g/dL (31-37); MEAN CORPUSCULAR VOLUME 84 fL (79-100); MONO # 0.5 x10^3/uL (0.0-1.1); MONO % 8 % (0-9); NEUT # 3.9 x10^3/uL (1.8-7.7); NEUT % 66 % (31-73); PLATELET COUNT 265 x10^3/uL (140-400); RED BLOOD COUNT 5.75 x10^6/uL (3.50-5.40); RED CELL DISTRIBUTION WIDTH 15.1 % (11.5-14.5)
--- NOTE | 2021-05-03 11:57 | RAD ---
CT HEAD WITHOUT CONTRAST 05/03/2021 11:46 AM Indication: Reason: dizziness / Spl. Instructions: / History: Comparison: CT head without contrast September 24, 2019 Findings: No intracranial hemorrhage is seen. No evidence of acute territorial infarct is seen. Note that CT is limited in sensitivity for acute ischemia. Age-related atrophic changes are noted. Ther e is prominent patchy periventricular and deep white matter hypoattenuation which is nonspecific, but most commonly relates to chronic small vessel disease. The appearance is similar to comparison exam. No abnormal extra axial fluid collection is identified. No mass effect or midline shift is seen. No acute osseous abnormalities are seen. Impression: 1. No acute intracranial process identified 2. Age-related atrophy, and prominent changes of chronic small vessel disease as described, similar t o comparison exam CT DOSING PQRS STATEMENT: One or more of the following individualized dose reduction techniques were utilized for this examinat ion: 1. Automated exposure control 2. Adjustment of the mA and/or kV according to patient size 3. Use of iterative reconstruction technique Electronically signed by: Cruzito Childress MD (05/03/2021 11:55 AM) [id number]
[2021-05-03 12:16] LABS: GFR 64.9; POTASSIUM 4.9 mmol/L (3.5-5.1)
[2021-05-03 12:20] LABS: PHOSPHORUS 4.2 mg/dL (2.6-4.7)
[2021-05-03 13:19] VITALS: BP 163/74
[2021-05-03 13:21] LABS: BILIRUBIN,URINE NEGATIVE (NEG); CLARITY,URINE CLEAR; COLOR,URINE YELLOW; NITRITE,URINE NEGATIVE (NEG); PROTEIN,URINE NEGATIVE (NEG-TRACE)
[2021-05-03 13:34] LABS: HYALINE CASTS, URINE MODERATE /HPF
[2021-05-03 13:35] LABS: BACTERIA,URINE MODERATE /HPF (0-FEW); RBC,URINE 0 /HPF (0-2); WBC,URINE TNTC /HPF (0-4)
--- NOTE | 2021-05-03 16:47 | EKG ---
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
== END 2021-05-03 13:50 | disposition home or self-care (01) ==
LOC: ER 10:45
DX: R42 Dizziness and giddiness (principal); I10 Essential (primary) hypertension; Z86.73 Personal history of transient ischemic attack (TIA), and cerebral infarction without residual deficits; Z86.718 Personal history of other venous thrombosis and embolism; Z87.891 Personal history of nicotine dependence; Z88.0 Allergy status to penicillin; Z88.5 Allergy status to narcotic agent
CPT/HCPCS: 36415; 70450; 80048; 81001; 83735; 84100; 85025; 87086; 93005; 99285-25